=== PATIENT | male | born 1955 | race Hispanic/Latino ===

== ENCOUNTER 2018-06-26 18:24 | Emergency (ER) | payer SELFPAY ==
[2018-06-26] MEDS ORDERED: LIDOCAINE 2% MPF 5 ML VIAL ONE (18:43)
[2018-06-26] MEDS ORDERED: ONDANSETRON 4 MG/2 ML VIAL ONE (18:44)
[2018-06-26] MEDS ORDERED: FENTANYL CITR 100 MCG/2 ML ONE (18:44)
[2018-06-26] MEDS ORDERED: CLINDAMYCIN 900MG/D5W 900 MG/50 ML IVPB IV ONE (18:44)
--- NOTE | 2018-06-26 19:09 | RAD REPORT ---
EXAM DESCRIPTION: RAD - Hand Left 3 View - 06/26/2018 6:55 pm CLINICAL HISTORY: Left hand pain, table saw injury COMPARISON: None. FINDINGS: Comminuted fracture with bone loss seen fourth distal phalanx. Bone loss is at the base cr eating a partial dislocation. Soft tissue wound is present. Several small bone fragments remain in th e soft tissues. Soft tissue wound is present tip of the third digit without fracture confirmed. The a ppearance of the tuft distal third digit suggests remodeling from old injury. Soft tissue wound is se en adjacent to the seconds middle phalanx without bone involvement. Small punctate foreign bodies are present at the second digit soft tissue wound. IMPRESSION: Comminuted fracture with bone loss distal left fourth phalanx. Soft tissue wounds of the second and third digits without acute bone component.
--- NOTE | 2018-06-26 21:14 | ER ---
Nurse's Notes [facility] Name: Terrance Mock Age: 62 yrs Sex: Male : 1955 Arrival Date: 06/26/2018 Time: 18:28 Bed 5 Private MD: Diagnosis: Left 2nd, 3rd, and 4th finger lacerations;Left 4th distal phalanx comminuted open fracture Presentation: 06/26 18:29 Presenting complaint: Patient states: cut 2nd, 3rd, 4th digits on left hand with table iw saw, approx 20 minutes ago, partial amputation of 4th digit, dressing in place, bleeding controlled. Transition of care: patient was not received from another setting of care. Onset of symptoms was June 26, 2018. Risk Assessment: Do you want to hurt yourself or someone else? Patient reports no desire to harm self or others. Initial Sepsis Screen: Does the patient meet any 2 criteria? No. Patient's initial sepsis screen is negative. Does the patient have a suspected source of infection? No. Patient's initial sepsis screen is negative. Care prior to arrival: Bleeding of injury controlled. Injury dressed. 18:29 Method Of Arrival: Ambulatory iw 18:29 Acuity: SHAWANDA 3 iw Triage Assessment: 18:29 General: Appears uncomfortable, Behavior is cooperative, appropriate for age. 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 Injury Description: Laceration sustained to palmar aspect of distal phalanx of left little finger, palmar aspect of middle phalanx of left little finger, palmar aspect of proximal phalanx of left little finger, palmar aspect of distal phalanx of left ring finger, palmar aspect of middle phalanx of left ring finger, palmar aspect of proximal phalanx of left ring finger, palmar aspect of distal phalanx of left middle finger, palmar aspect of middle phalanx of left middle finger and palmar aspect of proximal phalanx of left middle finger is full thickness, bleeding moderately, fingers appear to be held in place by skin, pt is able to open and close his hand. Historical: - Allergies: 18:31 No Known Allergies; iw - Home Meds: 18:31 None [Active]; iw - PMHx: 18:31 None; iw - PSHx: 18:31 None; iw - Immunization history:: Last tetanus immunization: up to date < 5 years ago. - Social history:: Smoking status: . - Ebola Screening: : Patient negative for fever greater than or equal to 101.5 degrees Fahrenheit, and additional compatible Ebola Virus Disease symptoms Patient denies exposure to infectious person Patient denies travel to an Ebola-affected area in the 21 days before illness onset No symptoms or risks identified at this time. - Family history:: not pertinent. - Hospitalizations: : No recent hospitalization is reported. Screenin:23 Abuse screen: Denies threats or abuse. Denies injuries from another. Nutritional lp1 screening: No deficits noted. Tuberculosis screening: No symptoms or risk factors identified. Fall Risk None identified. Assessment: 18:29 General: Appears uncomfortable, Behavior is cooperative, appropriate for age. Pain: tw2 Complains of pain in left hand. Neuro: Level of Consciousness is awake, alert, obeys commands, Oriented to person, place, time, situation. Cardiovascular: Heart tones S1 S2 Patient's skin is warm and dry. Respiratory: Airway is patent Respiratory effort is even, unlabored, Respiratory pattern is regular, symmetrical, Breath sounds are clear bilaterally. GI: No signs and/or symptoms were reported involving the gastrointestinal system. Abdomen is flat, Bowel sounds present X 4 quads. : No signs and/or symptoms were reported regarding the genitourinary system. EENT: No signs and/or symptoms were reported regarding the EENT system. Derm: Wound noted LEFT middle, ring, and index finger Other: minimal bleeding noted. 19:13 General: Appears in no apparent distress. Behavior is appropriate for age. Pain: lp1 Complains of pain in left hand. 19:21 Neuro: Level of Consciousness is awake, alert, obeys commands, Oriented to person, lp1 place, time, situation. Cardiovascular: Patient's skin is warm and dry. Respiratory: Respiratory effort is even, unlabored. GI: No signs and/or symptoms were reported involving the gastrointestinal system. : No signs and/or symptoms were reported regarding the genitourinary system. EENT: No signs and/or symptoms were reported regarding the EENT system. Derm: Wound noted Wound is Laceration noted to left pointer finger, middle finger and 4th fingers; Not actively bleeding. Musculoskeletal: Circulation, motion, and sensation intact. 20:31 Reassessment: Patient appears in no apparent distress at this time. Patient and/or lp1 family updated on plan of care and expected duration. Pain level reassessed. Patient and family aware of pending transfer; Patient aware of NPO status. 21:00 Reassessment: Patient appears in no apparent distress at this time. Patient is alert, lp1 oriented x 3, equal unlabored respirations, skin warm/dry/pink. Patient aware of transfer, signed transfer form; Patient's son at bedside. 21:15 Reassessment: Report called to HIPOLITO Foster for patient transfer to [place] [id number] [facility] Room 1618. 22:06 Reassessment: EMS at bedside for transfer. lp1 Vital Signs: 18:32 BP 202 / 90; Pulse 84; Resp 16; Temp 97.8(O); Pulse Ox 98% on R/A; Weight 86.18 kg; iw Height 5 ft. 8 in. (172.72 cm); Pain 9/10; 19:12 BP 186 / 98; Pulse 76; Resp 15; Pulse Ox 97% on R/A; lp1 20:00 BP 180 / 92; Pulse 68; Resp 12; Pulse Ox 97% on R/A; lp1 21:00 BP 174 / 94; Pulse 69; Resp 14; Temp 98.4(O); Pulse Ox 97% on R/A; Pain 4/10; lp1 22:05 BP 168 / 94; Pulse 65; Resp 18; Pulse Ox 95% on R/A; lp1 18:32 Body Mass Index 28.89 (86.18 kg, 172.72 cm) iw ED Course: 18:25 Bed in low position. Call light in reach. Adult w/ patient. welder journeyman on. Pulse tw2 ox on. NIBP on. 18:28 Patient arrived in ED. bd 18:30 Kevin Martinez MD is Attending Physician. wa 18:31 Triage completed. iw 18:32 Sandra Diaz RN is Primary Nurse. tw2 18:32 Arm band placed on. iw 18:34 Initial lab(s) drawn, by me. Inserted saline lock: 20 gauge in right antecubital area, jb1 using aseptic technique. Blood collected. 18:55 Hand Left 3 View XRAY In Process Unspecified. EDMS 19:00 Report given to HIPOLITO Matthews. tw2 19:15 Wound care: to laceration was soaked in normal saline solution. lp1 19:[address] Martinez with wound care to left hand, laceration to pointer finger, middle lp1 finger, partial amputation to 4th finger; Irrigated with Normal Saline, dressed with wet to dry dressing with Kerlix. 22:06 Patient transferred, IV remains in place. lp1 Administered Medications: 18:33 Not Given (Patient Refused; <3 yrs): Tetanus-Diphtheria Toxoid Adult 0.5 ml IM once tw2 18:40 Drug: Zofran 4 mg Route: IVP; Site: right antecubital; tw2 19:12 Follow up: Response: No adverse reaction lp1 18:42 Drug: fentaNYL (PF) 100 mcg Route: IVP; Site: right antecubital; tw2 19:12 Follow up: Response: Pain is decreased lp1 18:44 Drug: Clindamycin 900 mg Route: IVPB; Infused Over: 30 mins; Site: right antecubital; tw2 19:11 Follow up: IV Status: Completed infusion lp1 19:11 Drug: Lidocaine (2 %) 100 mg Volume: 5 ml; Route: Infiltration; lp1 Outcome: 21:13 ER care complete, transfer ordered by . wa 21:18 Condition: stable lp1 21:18 Instructed on the need for transfer. 22:06 Transferred by ground EMS to [facility], Transfer form completed. lp1 X-rays sent w/ patient. 22:10 Patient left the ED. lp1 Signatures: Dispatcher [employer] EDMS Von Celeste jb1 Xiao James Irene, RN RN iw Cassie Levin RN RN lp1 Sandra Diaz RN RN tw2 Kevin Martinez MD MD wa Corrections: (The following items were deleted from the chart) 18:34 18:32 Resp 16bpm; Pulse Ox 98% RA; Temp 97.8F Oral; 86.18 kg; Height 5 ft. 8 in.; BMI: iw 28.8; Pain 9/10; iw 18:42 18:32 Pulse 84bpm; Resp 16bpm; Pulse Ox 98% RA; Temp 97.8F Oral; 86.18 kg; Height 5 ft. iw 8 in.; BMI: 28.8; Pain 11/13; iw 19:22 19:13 General: Appears in no apparent distress. Behavior is appropriate for age, lp1 lp1 19:13 Pain: Complains of pain in left hand lp1 lp1
--- NOTE | 2018-06-26 21:14 | EDPHYS ---
Physician Documentation [facility] Name: Terrance Mock Age: 62 yrs Sex: Male : 1955 Arrival Date: 06/26/2018 Time: 18:28 Bed 5 Private MD: ED Physician Kevin Martinez HPI: 06/26 21:00 This 62 yrs old Male presents to ER via Ambulatory with complaints of Finger wa Injury. 21:00 The patient or guardian reports injury, a laceration, complex, ragged. The complaints wa affect the Left 2nd, 3rd, and 4th digits. Context: The problem was sustained at home, resulted from table saw injury. Onset: The symptoms/episode began/occurred just prior to arrival. Modifying factors: The symptoms are alleviated by nothing, the symptoms are aggravated by nothing. Associated signs and symptoms: Pertinent positives: bleeding, Pertinent negatives: cyanosis distally, decreased sensation distally, numbness distally, tingling distally. Severity of symptoms: At their worst the symptoms were severe, in the emergency department the symptoms are unchanged. The patient has not experienced similar symptoms in the past. The patient has not recently seen a physician. tetanus UTD. Historical: - Allergies: 18:31 No Known Allergies; iw - Home Meds: 18:31 None [Active]; iw - PMHx: 18:31 None; iw - PSHx: 18:31 None; iw - Immunization history:: Last tetanus immunization: up to date < 5 years ago. - Social history:: Smoking status: . - Ebola Screening: : Patient negative for fever greater than or equal to 101.5 degrees Fahrenheit, and additional compatible Ebola Virus Disease symptoms Patient denies exposure to infectious person Patient denies travel to an Ebola-affected area in the 21 days before illness onset No symptoms or risks identified at this time. - Family history:: not pertinent. - Hospitalizations: : No recent hospitalization is reported. ROS: 21:02 Constitutional: Negative for fever, chills, and weight loss, Eyes: Negative for injury, wa pain, redness, and discharge, ENT: Negative for injury, pain, and discharge, Neck: Negative for injury, pain, and swelling, Cardiovascular: Negative for chest pain, palpitations, and edema, Respiratory: Negative for shortness of breath, cough, wheezing, and pleuritic chest pain, Abdomen/GI: Negative for abdominal pain, nausea, vomiting, diarrhea, and constipation, Back: Negative for injury and pain, : Negative for injury, bleeding, discharge, and swelling, Neuro: Negative for headache, weakness, numbness, tingling, and seizure, Psych: Negative for depression, anxiety, suicide ideation, homicidal ideation, and hallucinations. 21:02 MS/extremity: Positive for injury or acute deformity, deformity, laceration, of the L 2nd, 3rd, 4th fingers. 21:02 All other systems are negative. Exam: 21:03 Constitutional: This is a well developed, well nourished patient who is awake, alert, wa and in no acute distress. Head/Face: Normocephalic, atraumatic. Eyes: Pupils equal round and reactive to light, extra-ocular motions intact. Lids and lashes normal. Conjunctiva and sclera are non-icteric and not injected. Cornea within normal limits. Periorbital areas with no swelling, redness, or edema. ENT: Nares patent. No nasal discharge, no septal abnormalities noted. Tympanic membranes are normal and external auditory canals are clear. Oropharynx with no redness, swelling, or masses, exudates, or evidence of obstruction, uvula midline. Mucous membranes moist. Neck: Trachea midline, no thyromegaly or masses palpated, and no cervical lymphadenopathy. Supple, full range of motion without nuchal rigidity, or vertebral point tenderness. No Meningismus. Chest/axilla: Normal chest wall appearance and motion. Nontender with no deformity. No lesions are appreciated. Cardiovascular: Regular rate and rhythm with a normal S1 and S2. No gallops, murmurs, or rubs. Normal PMI, no JVD. No pulse deficits. Respiratory: Lungs have equal breath sounds bilaterally, clear to auscultation and percussion. No rales, rhonchi or wheezes noted. No increased work of breathing, no retractions or nasal flaring. Abdomen/GI: Soft, non-tender, with normal bowel sounds. No distension or tympany. No guarding or rebound. No evidence of tenderness throughout. Back: No spinal tenderness. No costovertebral tenderness. Full range of motion. Neuro: Awake and alert, GCS 15, oriented to person, place, time, and situation. Cranial nerves II-XII grossly intact. Motor strength 5/5 in all extremities. Sensory grossly intact. Cerebellar exam normal. Normal gait. Psych: Awake, alert, with orientation to person, place and time. Behavior, mood, and affect are within normal limits. 21:03 Musculoskeletal/extremity: Extremities: all appear grossly normal, with no appreciated pain with palpation, grossly normal except: noted in the partial amputation of tip of L 4th finger: partial amputation of tip of L 3rd finger. 21:03 Skin: injury, laceration(s), the wound is approximately 1.5 cm(s), that can be described as macerated palmar side of 3rd finger b/n the DP and PIP. . Vital Signs: 18:32 BP 202 / 90; Pulse 84; Resp 16; Temp 97.8(O); Pulse Ox 98% on R/A; Weight 86.18 kg; iw Height 5 ft. 8 in. (172.72 cm); Pain 9/10; 19:12 BP 186 / 98; Pulse 76; Resp 15; Pulse Ox 97% on R/A; lp1 20:00 BP 180 / 92; Pulse 68; Resp 12; Pulse Ox 97% on R/A; lp1 21:00 BP 174 / 94; Pulse 69; Resp 14; Temp 98.4(O); Pulse Ox 97% on R/A; Pain 4/10; lp1 22:05 BP 168 / 94; Pulse 65; Resp 18; Pulse Ox 95% on R/A; lp1 18:32 Body Mass Index 28.89 (86.18 kg, 172.72 cm) iw Procedures: 21:06 Performed wound care: digital block achieved with lidocaine 2%. 2nd 3rd and 4th digits wa blocked. irrigated wounds copiously with saline. dressed with saline-soaked gauze in wet to dry manner. pt tolerated procedure well. MDM: 18:30 Patient medically screened. wa 21:08 Differential diagnosis: open fracture. Data reviewed: vital signs, nurses notes. Test wa interpretation: by ED physician or midlevel provider: L hand x-ray: comminuted fracture with bone loss distal L 4th phalanx. soft tissue wounds of the 2nd and 3rd digits without acute bone components. Physician consultation: Dr. Anderson out of town. pt accepted by hand caroline Casillas at [facility]. . ED course: received IV abx. 06/26 18:31 Order name: Hand Left 3 View XRAY; Complete Time: 19:18 mn 06/26 18:59 Order name: Wound Care; Complete Time: 19:11 mn Administered Medications: 18:33 Not Given (Patient Refused; <3 yrs): Tetanus-Diphtheria Toxoid Adult 0.5 ml IM once tw2 18:40 Drug: Zofran 4 mg Route: IVP; Site: right antecubital; tw2 19:12 Follow up: Response: No adverse reaction lp1 18:42 Drug: fentaNYL (PF) 100 mcg Route: IVP; Site: right antecubital; tw2 19:12 Follow up: Response: Pain is decreased lp1 18:44 Drug: Clindamycin 900 mg Route: IVPB; Infused Over: 30 mins; Site: right antecubital; tw2 19:11 Follow up: IV Status: Completed infusion lp1 19:11 Drug: Lidocaine (2 %) 100 mg Volume: 5 ml; Route: Infiltration; lp1 Disposition: 06/26/18 21:13 Transfer ordered to [facility]. Diagnosis are Left 2nd, 3rd, and 4th finger lacerations, Left 4th distal phalanx comminuted open fracture . - Reason for transfer: Higher level of care. - Accepting physician is Dr. Casillas. - Condition is Stable. - Problem is new. - Symptoms have improved. Signatures: Dispatcher [employer] EDCatalina Decker RN RN Cassie Levin RN RN lp1 Sandra Diaz RN RN tw2 Kevin Martinez MD MD mn Corrections: (The following items were deleted from the chart) 22:10 21:13 06/26/2018 21:13 Transfer ordered to [facility]. Diagnosis is lp1 Left 2nd, 3rd, and 4th finger lacerations; Left 4th distal phalanx comminuted open fracture . Reason for transfer: Higher level of care. Accepting physician is Dr. Casillas. Condition is Stable. Problem is new. Symptoms have improved. wa
== END 2018-06-26 22:10 | disposition short-term general hospital (02) ==
LOC: ER 18:24
DX: S61.217A Laceration without foreign body of left little finger without damage to nail, initial encounter (principal); S62.635B Displaced fracture of distal phalanx of left ring finger, initial encounter for open fracture; S61.213A Laceration without foreign body of left middle finger without damage to nail, initial encounter; W29.8XXA Contact with other powered hand tools and household machinery, initial encounter; Y93.9 Activity, unspecified; Y92.009 Unspecified place in unspecified non-institutional (private) residence as the place of occurrence of the external cause
CPT/HCPCS: 96365; 96375; 99285; J2405; J3010